=== PATIENT | female | born 1980 | race Caucasian/White ===

== ENCOUNTER 2016-05-08 16:12 | Emergency (ER) | payer MEDICARE ==
[2016-05-08 17:39] LABS: Hemoglobin 10.5 g/dL (12.0-16.0); Mean Corpuscular Hemoglobin 23.5 pg (27.0-31.0); Mean Corpuscular Volume 75.8 fL (81.0-99.0); RBC Distribution Width 17.9 % (11.5-14.5); Red Blood Cell (RBC) Count 4.45 mill/uL (4.20-5.40); White Blood Cell (WBC) Count 8.3 thou/uL (4.8-10.8)
[2016-05-08 17:40] LABS: #Eosinphils 0.5 thou/uL (0.0-0.7); #Lymphocytes 2.1 thou/uL (1.20-3.40); #Monocytes 0.4 thou/uL (0.11-0.59); #Neutrophils 5.4 thou/uL (1.40-6.50); %Basophils 0.6 % (0.0-1.0); %Eosinophils 5.5 % (0.0-10.0); %Lymphocytes 24.8 % (21.0-51.0); %Neutrophils 64.2 % (42.0-75.0); Anisocytosis SLIGHT = 6-15 cells (100X) (0-5/hpf); Mean Platelet Volume 8.4 fL (7.4-10.4); Platelet Count 252 thou/uL (130-400)
[2016-05-08 17:41] LABS: PLT Morphology Comment Appears Adequate
[2016-05-08 17:44] LABS: BHCG - Serum NEGATIVE (NEGATIVE); Pregs Control Background? CLEAR/WHITE (CLR/WHITE); Pregs Control Bar Appear? YES (CONTROL BAR)
[2016-05-08 17:55] LABS: ALT (SGPT) 60 U/L (0-55); AST (SGOT) 128 U/L (5-34); Albumin 4.3 g/dL (3.5-5.0); Alkaline Phosphatase 117 U/L (40-150); Anion Gap 16 mmol/L (10-20); BUN (Urea Nitrogen) 10 mg/dL (7.0-18.7); Bilirubin, Total 0.3 mg/dL (0.2-1.2); Calc. Creatinine Clearance 0 mL/min (70-130); Calcium 9.7 mg/dL (7.8-10.44); Carbon Dioxide 22 mmol/L (22-29); Chloride 104 mmol/L (98-107); Estimated GFR-MDRD 84; Globulin 2.9 g/dL (2.4-3.5); Glucose 102 mg/dL (70-105); Potassium 3.7 mmol/L (3.5-5.1); Protein, Total 7.2 g/dL (6.0-8.3); Sodium 138 mmol/L (136-145)
[2016-05-08 18:47] LABS: Bilirubin Negative (Negative); Blood, Urine Negative (Negative); Clarity Clear (Clear); Glucose, Urine (Dipstick) Negative (Negative); Leukocyte Negative (Negative); Nitrite Negative (Negative); Protein, Urine (Dipstick) Negative (Neg-Trace); Urobilinogen 0.2 mg/dL (0.2-1.0); pH, Urine 5.5 (5.0-9.0)
[2016-05-08] MEDS ORDERED: diphenhydrAMINE HCl 25 MG CAP ONE (19:05)
[2016-05-08] MEDS ORDERED: HYDROcodone/Acetaminophen 10/325 mg Tablet ONE (19:05)
[2016-05-08] MEDS ORDERED: Hyoscyamine Sulfate SL 0.125 mg Tablet ONE (19:05)
--- NOTE | 2016-05-08 19:40 | ERRECORD ---
[facility] EMERGENCY RECORD HPI ABDOMINAL PAIN (19:01 LLDO) CHIEF COMPLAINTS: Patient presents for evaluation of abdominal pain, Patient presents for evaluation of last week pt was given a depo-provera shot to stop periods to help her recover from her anemia in prep for her up-coming hysterectomy. the bleeding has stopped but the pelvic cramps are now much worse. pt unable to sleep or find any comfort. HISTORIAN: History provided by patient, History provided by patient's partner. LOCATION FEMALE: Symptoms are generalized. QUALITY: Pain is dull in nature, described as aching, described as cramping. SEVERITY: Maximum severity of symptoms severe, Currently symptoms are moderate. TIME COURSE: Patient unable to describe onset of symptoms, Symptoms are intermittent, Symptoms are worsening. ASSOCIATED WITH FEMALE: No associated recent antibiotic use, No associated bright red blood per rectum, No associated chills, No associated constipation, No associated diarrhea, Associated with fever, Associated with loss of appetite, Associated with nausea, No associated night sweats, No associated trauma, No associated urinary tract infection signs or symptoms, No associated vomiting, low back pain. MODIFYING FACTORS FEMALE: Patient does not have sexually transmitted disease, see hpi. RELIEVED BY: Patient's condition relieved by nothing. EXACERBATED BY: Patient's condition exacerbated by movement, Patient's condition exacerbated by walking, Patient's condition exacerbated by PALPATION. RISK FACTORS FEMALE: No ectopic risk factors present, Abdominal aortic aneurysm risk factors, not applicable for this patient, no connective tissue disorders, no Tamara Danlos syndrome, no first degree relative, no Marfan's syndrome, patient not over 40 years of age, no history of abdominal aortic aneurysm, Coronary artery disease risk factors, include diabetes. ROS CONSTITUTIONAL: Historian reports fatigue, reports weakness. (19:11 LLDO) EYES: Negative eye review of systems, Historian denies eye pain, denies eye redness, denies eye discharge. (19:15 LLDO) ENT: Negative ears, nose, throat review of systems, Historian denies epistaxis, denies rhinorrhea, denies sinus pain, denies sore throat. (19:15 LLDO) CARDIOVASCULAR: Negative cardiovascular review of systems, Historian denies chest pain, no radiation, Historian denies diaphoresis, denies syncope. (19:15 LLDO) RESPIRATORY: Negative respiratory review of systems, Historian denies cough, denies shortness of breath, denies sputum. (19:15 LLDO) GI: Negative gastrointestinal review of systems, Historian denies abdominal pain, denies constipation, denies diarrhea, denies nausea, &a-1R&a+25V*p+0X*q7744K*c202B*c15G*c2P*p-0X&a-25V&a+1R Name: Lourdes Lindsey : 1980 F36 MedRec: [id number] AcctNum: [id number] Prepared: Rox May 08, 2016 19:38 by Interface Page 1 of 5 pMD [facility] EMERGENCY RECORD denies vomiting. (19:15 LLDO) GENITOURINARY FEMALE: Negative genitourinary review of systems, Historian denies dysuria, denies frequency, denies urgency. (19:15 LLDO) MUSCULOSKELETAL: Negative musculoskeletal review of systems, Historian denies arthralgias, denies back pain, denies injury, denies myalgias, denies neck pain. (19:15 LLDO) SKIN: Negative skin review of systems, Historian denies cellulitis, denies rash, denies skin changes, denies skin lesions. (19:15 LLDO) NEUROLOGIC: Negative neurologic review of systems, Historian denies confusion, denies dizziness, denies focal weakness, denies mental status changes. (19:15 LLDO) HEMO/LYMPHATIC: Normal hematologic/lymphatic system review, Historian denies abnormal blood clotting, denies gum bleeding, denies petechiae. (19:15 LLDO) ALLERGIC/IMMUNOLOGIC: Normal allergy/immunologic system review, Historian denies eczema, denies environmental allergies, denies food allergies. (19:15 LLDO) PSYCHIATRIC: Negative psychiatric review of systems, Historian denies alcohol abuse, denies anxiety, denies depression, denies drug abuse, denies hallucinations. (19:15 LLDO) NOTES: All systems reviewed, negative except as described above. (19:11 LLDO) PAST MEDICAL HISTORY MEDICAL HISTORY: Flu vaccine not up to date, Pneumococcal vaccine up to date, Date of immunization: 2007, Past medical history includes history of diabetes, Type I, ON METFORMIN, Flu vaccine up to date, Tetanus immunization up to date, Past medical history includes gastrointestinal disease, irritable bowel syndrome, Past medical history includes neurological disease, migraine headaches, Notes: GERD, Past medical history includes history of obesity, Past medical history includes pulmonary disease, SEASONAL ALLERGIES. VERIFIED 02/29/16. PLUS FATTY LIVER DISEASE. (16:40 SCHI) FEMALE SURGICAL HISTORY: Surgical history of cholecystectomy, HAND (right), THROAT (nodule removed) AND FOOT (right)SURGERIES. Surgical history of section, Date of surgery 2004. CARPAL TUNNEL right. VERIFIED 02/29/16. (16:40 SCHI) PSYCHIATRIC HISTORY: Psychiatric history includes, depression, Psychiatric history includes, schizophrenia, Notes: BI-POLAR. Psychiatric history includes, depression,. VERIFIED 02/29/16. (16:40 SCHI) SOCIAL HISTORY: Patient denies alcohol use, Patient denies drug use, Lives at home, with family, Tobacco history notes: currently uses vape cigarettes, Lives at home. Patient denies alcohol use, Patient denies drug use,, Patient is a former tobacco user, Tobacco history notes: currently uses vape cigarettes, Lives at home. VERIFIED 02/29/16. (16:40 SCHI) &a-1R&a+25V*p+0X*[id number]*c202B*c15G*c2P*p-0X&a-25V&a+1R Name: Lourdes Lindsey : 1980 F36 MedRec: [id number] AcctNum: [id number] Prepared: [facility] May 08, 2016 19:38 by Interface Page 2 of 5 pMD [facility] EMERGENCY RECORD NOTES: Nursing records reviewed, Agree with nursing records, Medication list reviewed. (19:14 LLDO) KNOWN ALLERGIES aspirin (bulk): - UPSERTS STOMACH morphine: Reaction: Nausea, Severity: Severe, Source: Patient Peanut Butter Flavor: Reaction: Anaphylaxis, Source: Patient Soy: Reaction: Nausea CURRENT MEDICATIONS (16:41 SCHI) Geodon: CAPSULE : Strength - 80 mg : ORAL Patient Dose: 1 tab(s) Oral once a day (at bedtime). traZODone: TABLET : Strength - 100 mg : ORAL Patient Dose: 1 tab(s) Oral once a day (at bedtime). Topamax: TABLET : Strength - 200 mg : ORAL Patient Dose: 1 tab(s) Oral once a day (at bedtime). LORazepam: TABLET : Strength - 0.5 mg : ORAL Patient Dose: As Needed. Lexapro: TABLET : Strength - 20 mg : ORAL Patient Dose: once a day. Cogentin: TABLET : Strength - 2 mg : ORAL Patient Dose: 4 mg once a day (at bedtime). PriLOSEC: CAPSULE,DELAYED RELEASE (ENTERIC COATED) : Strength - 40 mg : ORAL Patient Dose: Oral once a day (at bedtime). metFORMIN: TABLET : Strength - 500 mg : ORAL Patient Dose: 1 tab(s) Oral 2 times a day (before meals). VITAL SIGNS VITAL SIGNS: BP: 146/77, Pulse: 81, Resp: 20, Temp: 100. (Tympanic), Pain: 7 (Intermittent), O2 sat: 98 on Room Air, Time: 05/08/2016 16:38. (16:38 SCHI) BP: 136/76, Pulse: 77, Resp: 18, O2 sat: 96 on Room Air, Time: 05/08/2016 18:45. (18:45 CJEF) BP: 141/68, Pulse: 80, Resp: 18, Temp: 99.5 (Oral), Pain: 7, O2 sat: 95 on Room Air, Time: 05/08/2016 19:12. (19:12 CJEF) PHYSICAL EXAM CONSTITUTIONAL: Vital Signs Reviewed, Patient afebrile, Pulse normal, Blood pressure normal, Respiratory rate normal, Patient appears non toxic, Patient appears, in moderate pain distress, SEVERE WITH PALPATION OR MOVEMENT, Patient alert and oriented to person, place and time, Nursing notes reviewed. &a-1R&a+25V*p+0X*y6700B*c202B*c15G*c2P*p-0X&a-25V&a+1R Name: Lourdes Lindsey : 1980 F36 MedRec: [id number] AcctNum: [id number] Prepared: Rox May 08, 2016 19:38 by Interface Page 3 of 5 pMD [facility] EMERGENCY RECORD (19:12 LLDO) HEAD: Head exam normal, Head exam included findings of head atraumatic, normocephalic. (19:15 LLDO) EYES: Eye exam normal, Eye exam included findings of eyelids normal to inspection, Pupils equally round and reactive to light, Extraocular muscles intact. (19:15 LLDO) ENT: ENT exam normal, Ear exam normal, Nose exam normal. (19:15 LLDO) NECK: Neck exam normal, Neck exam included findings of normal range of motion, Trachea midline, no meningeal signs, no tenderness. (19:15 LLDO) RESPIRATORY CHEST: Respiratory and chest exam normal, Respiratory exam included findings of, Chest exam included findings of chest movement symmetrical, Chest expansion equal. (19:15 LLDO) CARDIOVASCULAR: Cardiovascular assessment normal, Cardiovascular exam included findings of heart rate regular rate and rhythm, Heart sounds normal. (19:15 LLDO) ABDOMEN FEMALE: Abdominal exam included findings of abdomen tender, to the left lower quadrant, moderate intensity, Bowel sounds normal. (19:12 LLDO) BACK: Back exam included findings of normal inspection, range of motion normal, no tenderness, no costovertebral angle tenderness, no Scoliosis, no pain with straight leg raise. (19:12 LLDO) UPPER EXTREMITY: Upper extremity exam normal, Upper extremity exam included findings of inspection normal, Range of motion normal. (19:15 LLDO) LOWER EXTREMITY: Lower extremity exam normal, Lower extremity exam included findings of inspection normal, Range of motion normal. (19:15 LLDO) NEURO: Neuro exam normal, Neuro exam findings include patient oriented to person, place and time, Speech normal, Aladdin coma scale 15. (19:15 LLDO) SKIN: Skin exam normal, Skin exam included findings of skin warm, dry, and normal in color, no rash. (19:15 LLDO) PSYCHIATRIC: Psychiatric exam normal, Psychiatric exam included findings of patient oriented to person place and time, Normal affect. (19:15 LLDO) MEDICATION ADMINISTRATION SUMMARY Drug Name: [place], Dose Ordered: 10-325 mg, Route: Oral, Status: Given, Time: 19:12 05/08/2016, Drug Name: Benadryl oral, Dose Ordered: 50 mg, Route: Oral, Status: Given, Time: 19:05/08/2016, Drug Name: Levsin/SL, Dose Ordered: 0.5 mg, Route: Sublingual, Status: Given, Time: 19:05/08/2016, Drug Name: Phenergan oral, Dose Ordered: 50 mg, Route: Oral, Status: Given, Time: 19:11 05/08/2016, Detailed record available in Medication Service section. &a-1R&a+25V*p+0X*[id number]*c202B*c15G*c2P*p-0X&a-25V&a+1R Name: Lourdes Lindsey : 1980 6 MedRec: [id number] AcctNum: [id number] Prepared: [facility] May 08, 2016 19:38 by Interface Page 4 of 5 pMD [facility] EMERGENCY RECORD PROBLEM LIST No recorded problems DIAGNOSIS (19:18 LLDO) FINAL: PRIMARY: Pelvic Pain, ADDITIONAL: ANEMIA UNSPECIFIED. PRESCRIPTION (19:20 LLDO) Provera: TABLET : 10 mg : ORAL : Quantity: 1 Unit: tab(s) Route: ORAL Schedule: once a day Dispense: 10 May substitute. Refills: No Refills . NOTES: No Refills. [place]: TABLET : 10 mg-325 mg : ORAL : Quantity: 1 Unit: tab(s) Route: ORAL Schedule: every 4 hours prn Dispense: 30 Unit: tab(s) May substitute. Refills: No Refills POTENTIAL ALLERGY REACTION: 'morphine [morphine/morphine sulfate]' Override Rationale: Reviewed with patient, pt says can safely take this medicine. NOTES: ^s=No Refills No Refills. DISPOSITION PATIENT: Disposition Type: Discharge, Disposition: *Discharge Home. (19:18 LLDO) Patient left the department. (19:31 [facility]) Cheng: SHAKEELEF=REGAN Lira, Aleena SCHWARTZDO=MD Lissy, Wing MCRS=REGAN Montano, Juan CASTILLO=REGAN Cunningham, Abnerinda &a-1R&a+25V*p+0X*[id number]*c202B*c15G*c2P*p-0X&a-25V&a+1R Name: Lourdes Lindsey : 1980 6 MedRec: [id number] AcctNum: [id number] Prepared: Rox May 08, 2016 19:38 by Interface Page 5 of 5 pMD MTDD
--- NOTE | 2016-05-08 19:46 | PICIS ---
[facility] EMERGENCY RECORD TRIAGE (16:40 SCHI) PATIENT: NAME: Lourdes Lindsey, AGE: 36, GENDER: female, : Thu1980, TIME OF GREET: ThuMay 08, 2016 16:13, PREFERRED LANGUAGE: Kiswahili, RACE: WHITE, ETHNICITY: Not or , FALL RISK: NO, ECODE BILLING MAP: [facility] ER, SSN: [id number], Zip Code: [facility], [place] WEIGHT: [phone], PHONE: CELL, , , PERSON ID: [id number], PCP: MD Velasquez David. (16:40 SCHI) TRIAGE NOTES: FEELS WEAK, CRAMPING, HAS BEEN HAVING ISSUES WITH HER PERIODS,. (16:40 SCHI) COMPLAINT: MULTIPLE COMPLAINTS. (16:40 SCHI) ADMISSION: URGENCY: 4 Non Urgent, ADMISSION SOURCE: Home, TRANSPORT: Walk-in, BED: WAIT. (16:40 SCHI) ASSESSMENT: Assessment: ALERT AND ORIENTED X 4, SKIN WARM AND DRY RESP EVEN AND UNLABORED,, Symptoms began ONGOING. (16:40 SCHI) PAIN: Patient complains of pain described as, cramping, on a scale 0-10 patient rates pain as 7, Pain is intermittent. (16:40 SCHI) TRIAGE SCREENING: Patient denies suicidal ideation, Patient denies presence of domestic violence. (16:40 SCHI) PROVIDERS: TRIAGE NURSE: Nik Cunningham RN. (16:40 SCHI) VITAL SIGNS: BP 146/77, Pulse 81, Resp 20, Temp 100., (Tympanic), Pain 7, (Intermittent), O2 Sat 98, on Room Air, Time 05/08/2016 16:38. (16:38 SCHI) PREVIOUS VISIT ALLERGIES: aspirin (bulk), morphine, Peanut Butter Flavor, Soy. (16:40 SCHI) KNOWN ALLERGIES aspirin (bulk): - UPSERTS STOMACH morphine: Reaction: Nausea, Severity: Severe, Source: Patient Peanut Butter Flavor: Reaction: Anaphylaxis, Source: Patient Soy: Reaction: Nausea CURRENT MEDICATIONS (16:41 SCHI) Geodon: CAPSULE : Strength - 80 mg : ORAL Patient Dose: 1 tab(s) Oral once a day (at bedtime). traZODone: TABLET : Strength - 100 mg : ORAL Patient Dose: 1 tab(s) Oral once a day (at bedtime). Topamax: TABLET : Strength - 200 mg : ORAL Patient Dose: 1 tab(s) Oral once a day (at bedtime). LORazepam: TABLET : Strength - 0.5 mg : ORAL Patient Dose: As Needed. Lexapro: TABLET : Strength - 20 mg : ORAL Patient Dose: once a day. &a-1R&a+25V*p+0X*y2998L*c202B*c15G*c2P*p-0X&a-25V&a+1R Name: Lourdes Lindsey : 1980 F36 MedRec: [id number] AcctNum: [id number] Prepared: [facility] May 08, 2016 19:44 by Interface Page 1 of 11 pMD [facility] RECORD Cogentin: TABLET : Strength - 2 mg : ORAL Patient Dose: 4 mg once a day (at bedtime). PriLOSEC: CAPSULE,DELAYED RELEASE (ENTERIC COATED) : Strength - 40 mg : ORAL Patient Dose: Oral once a day (at bedtime). metFORMIN: TABLET : Strength - 500 mg : ORAL Patient Dose: 1 tab(s) Oral 2 times a day (before meals). VITAL SIGNS VITAL SIGNS: BP: 146/77, Pulse: 81, Resp: 20, Temp: 100. (Tympanic), Pain: 7 (Intermittent), O2 sat: 98 on Room Air, Time: 05/08/2016 16:38. (16:38 SCHI) BP: 136/76, Pulse: 77, Resp: 18, O2 sat: 96 on Room Air, Time: 05/08/2016 18:45. (18:45 CJEF) BP: 141/68, Pulse: 80, Resp: 18, Temp: 99.5 (Oral), Pain: 7, O2 sat: 95 on Room Air, Time: 05/08/2016 19:12. (19:12 CJEF) NURSING ASSESSMENT: ABDOMEN (16:52 SCHI) CONSTITUTIONAL: Patient complains of WEAKNESS AND HURTS, PT HAS MULTIPLE C/O FEMALE ISSUES WHICH SHE IS CURRENLY SEEING HER DOCTOR FOR BUT DOESN'T HAVE MONEY FOR FULL TREATMENT. PAIN: aching pain, ALL OVER, on a scale 0-10 patient rates pain as 7. NOTES: Patient tolerated procedure well. NURSING PROCEDURE: ACID PURIFICATION EQUIPMENT OPERATOR (18:45 CJ) PATIENT IDENTIFIER: Patient actively involved in identification process, Patient's identity verified by patient stating name, Patient's identity verified by patient stating date. ACID PURIFICATION EQUIPMENT OPERATOR: Patient placed on non-invasive blood pressure monitor, with disposable blood pressure cuff applied, Patient placed on continuous pulse oximetry. FOLLOW-UP: After procedure, alarms set and on, After procedure, patient tolerating monitoring. NOTES: Patient tolerated procedure well. SAFETY: Side rails up, Cart/Stretcher in lowest position, Family at bedside, Call light within reach, Hospital ID band on. NURSING PROCEDURE: DISCHARGE NOTE (19:27 [facility]) DISCHARGE: Patient discharged to home, ambulating without assistance, family driving, accompanied by //partner, Summary of Care printed/ provided, Patient requested and was provided an electronic copy of Discharge Instructions, Transition record given to patient, Discharge instructions given to patient, Simple or moderate discharge teaching performed, Prescriptions given and instructions on side effects given, Medication reconciliation form given, Above person(s) verbalized understanding of discharge instructions and follow-up care, Patient treated and evaluated by &a-1R&a+25V*p+0X*q3247Y*c202B*c15G*c2P*p-0X&a-25V&a+1R Name: Lourdes Lindsey : 1980 F36 MedRec: [id number] AcctNum: [id number] Prepared: Rox May 08, 2016 19:44 by Interface Page 2 of 11 D [facility] EM[facility] RECORD physician. BELONGINGS: Belongings remain with patient. NOTES: Patient tolerated procedure well. SAFETY: Side rails up, Cart/Stretcher in lowest position, Family at bedside, Call light within reach, Hospital ID band on. NURSING PROCEDURE: NURSE NOTES (18:47 [facility]) NURSES NOTES: Patient in no apparent distress, Patient resting quietly, Notes: PT RESTING IN BED QUIETLY WITH FAMILY AT BEDSIDE. NO DISTRESS NOTED. NURSING PROCEDURE: URINE COLLECTION (18:38 [facility]) PATIENT IDENTIFIER: Patient actively involved in identification process, Patient's identity verified by patient stating name, Patient's identity verified by patient stating date, Patient's identity verified by hospital ID chan. URINE COLLECTION FEMALE: Urine collected by mid-stream clean catch, urine yellow in color, Specimen labeled in the presence of the patient and sent to lab. SAFETY: Side rails up, Cart/Stretcher in lowest position, Family at bedside, Hospital ID band on. ORDER DETAILS Order Name: CBC with Differential, Status: Active, Time: 17:05/08/2016, User: MICHAEL, - Ordered for: MD Yuan Lloyd, - Entered by: MD Yuan Lloyd - Rox May 08, 2016 17:07, - Quantity: 1, Order Name: Comprehensive Metabolic Panel, Status: Active, Time: 17:05/08/2016, User: LLDO, - Ordered for: MD Yuan Lloyd, - Entered by: MD Yuan Lloyd - Rox May 08, 2016 17:07, - Quantity: 1, Order Name: CRP (Inflamatory), Status: Active, Time: 17:07 05/08/2016, User: LLDO, - Ordered for: MD Yuan Lloyd, - Entered by: MD Yuan Lloyd - Rox May 08, 2016 17:07, - Quantity: 1, Order Name: Culture, Urine, Status: Active, Time: 17:05/08/2016, User: LL, - Ordered for: MD Yuan Lloyd, - Entered by: MD Yuan Lloyd - Rox May 08, 2016 17:07, - Quantity: 1, Order Name: Test, Serum (BHCG), Status: Active, Time: 17:05/08/2016, User: LLDO, - Ordered for: MD Yuan Lloyd, - Entered by: MD Yuan Lloyd - Rox May 08, 2016 17:07, - Quantity: 1, Order Name: Urinalysis w/ Rflx Microscopic, Status: Active, Time: &a-1R&a+25V*p+0X*y2208V*c202B*c15G*c2P*p-0X&a-25V&a+1R Name: Lourdes Lindsey DOB: 1980 F36 MedRec: [id number] AcctNum: [id number] Prepared: [facility] May 08, 2016 19:44 by Interface Page 3 of 11 pMD [facility] RECORD 17:07 05/08/2016, User: LANA, - Ordered for: MD Yuan Lloyd, - Entered by: MD Yuan Lloyd - [facility] May 08, 2016 17:07, - Quantity: 1. MEDICATION ADMINISTRATION SUMMARY Drug Name: Whitharral, Dose Ordered: 10-325 mg, Route: Oral, Status: Given, Time: 19:12 05/08/2016, Drug Name: Benadryl oral, Dose Ordered: 50 mg, Route: Oral, Status: Given, Time: 19:11 05/08/2016, Drug Name: Levsin/SL, Dose Ordered: 0.5 mg, Route: Sublingual, Status: Given, Time: 19:11 05/08/2016, Drug Name: Phenergan oral, Dose Ordered: 50 mg, Route: Oral, Status: Given, Time: 19:11 05/08/2016, Detailed record available in Medication Service section. MEDICATION SERVICE Benadryl oral: Order: Benadryl oral (diphenhydramine HCl) - Dose: 50 mg : Oral Schedule: Now Ordered by: Wing Yuan MD Entered by: Wing Yuan MD [facility] May 08, 2016 18:58 Documented as given by: Aleena Lira RN [facility] May 08, 2016 19:11 Patient, Medication, Dose, Route and Time verified prior to administration. Amount given: 50MG, Site: Medication administered P.O., Mouth check performed after administration of medication, Patient appears Awake and alert- acceptable, Correct patient, time, route, dose and medication confirmed prior to administration, Patient advised of actions and side-effects prior to administration, Allergies confirmed and medications reviewed prior to administration, Patient tolerated procedure well, Patient in position of comfort, Side rails up, Cart in lowest position, Family at bedside. : Follow Up : Response assessment performed, No signs or symptoms of allergic reaction noted, Advised not to ambulate without assistance, Patient in position of comfort, Side rails up, Cart in lowest position, Family at bedside. (19:21 [facility]) Levsin/SL: Order: Levsin/SL (hyoscyamine sulfate) - Dose: 0.5 mg : Sublingual Schedule: Now Ordered by: Wing Yuan MD Entered by: Wing Yuan MD [facility] May 08, 2016 18:59 Documented as given by: Aleena Lira RN [facility] May 08, 2016 19:11 Patient, Medication, Dose, Route and Time verified prior to administration. Amount given: 0.5 MG, Site: Medication administered S.L., Mouth check performed after administration of medication, Patient appears Awake and alert- acceptable, Correct patient, time, route, dose and medication confirmed prior to administration, Patient advised of &a-1R&a+25V*p+0X*p4286P*c202B*c15G*c2P*p-0X&a-25V&a+1R Name: Lourdes Lindsey : 1980 F36 MedRec: [id number] AcctNum: [id number] Prepared: Rox May 08, 2016 19:44 by Interface Page 4 of 11 D [facility] EM[facility] RECORD actions and side-effects prior to administration, Allergies confirmed and medications reviewed prior to administration, Patient tolerated procedure well, Patient in position of comfort, Side rails up, Cart in lowest position, Family at bedside. : Follow Up : Response assessment performed, No signs or symptoms of allergic reaction noted, Advised not to ambulate without assistance, Patient in position of comfort, Side rails up, Cart in lowest position, Family at bedside. (19:21 [facility]) Whitharral: Order: Whitharral (hydrocodone bitartrate/acetaminophen) - Dose: 10-325 mg : Oral POTENTIAL ALLERGY REACTION: 'morphine [morphine/morphine sulfate]' - Reviewed with patient, pt says can safely take this medicine Schedule: Now Ordered by: Wing Yuan MD Entered by: Wing Yuan MD [facility] May 08, 2016 18:57 Documented as given by: Aleena Lira RN [facility] May 08, 2016 19:12 Patient, Medication, Dose, Route and Time verified prior to administration. Amount given: 1 TAB, Site: Medication administered P.O., Mouth check performed after administration of medication, Patient appears Awake and alert- acceptable, Correct patient, time, route, dose and medication confirmed prior to administration, Patient advised of actions and side-effects prior to administration, Allergies confirmed and medications reviewed prior to administration, Patient tolerated procedure well, Patient in position of comfort, Side rails up, Cart in lowest position, Family at bedside. : Follow Up : Response assessment performed, No signs or symptoms of allergic reaction noted, Advised not to ambulate without assistance, Patient in position of comfort, Side rails up, Cart in lowest position, Family at bedside. (19:21 [facility]) Phenergan oral: Order: Phenergan oral (promethazine HCl) - Dose: 50 mg : Oral Schedule: Now Ordered by: Wing Yuan MD Entered by: Wing Yuan MD [facility] May 08, 2016 18:59 Documented as given by: Aleena Lira RN [facility] May 08, 2016 19:11 Patient, Medication, Dose, Route and Time verified prior to administration. Amount given: 50MG, Site: Medication administered P.O., Mouth check performed after administration of medication, Patient appears Awake and alert- acceptable, Correct patient, time, route, dose and medication confirmed prior to administration, Patient advised of actions and side-effects prior to administration, Allergies confirmed and medications reviewed prior to administration, Patient tolerated procedure well, Patient in position of comfort, Side rails up, Cart in lowest position, Family at bedside. : Follow Up : Response assessment performed, No signs or symptoms of allergic reaction noted, Advised not to ambulate without assistance, Patient in position of comfort, Side rails up, Cart in lowest position, Family at bedside. (19:21 [facility]) &a-1R&a+25V*p+0X*y0649F*c202B*c15G*c2P*p-0X&a-25V&a+1R Name: Lourdes Lindsey : 1980 F36 MedRec: [id number] AcctNum: [id number] Prepared: [facility] May 08, 2016 19:44 by Interface Page 5 of 11 D [facility] EM[facility] RECORD HPI ABDOMINAL PAIN (19:01 LLDO) CHIEF COMPLAINTS: Patient presents for evaluation of abdominal pain, Patient presents for evaluation of last week pt was given a depo-provera shot to stop periods to help her recover from her anemia in prep for her up-coming hysterectomy. the bleeding has stopped but the pelvic cramps are now much worse. pt unable to sleep or find any comfort. HISTORIAN: History provided by patient, History provided by patient's partner. LOCATION FEMALE: Symptoms are generalized. QUALITY: Pain is dull in nature, described as aching, described as cramping. SEVERITY: Maximum severity of symptoms severe, Currently symptoms are moderate. TIME COURSE: Patient unable to describe onset of symptoms, Symptoms are intermittent, Symptoms are worsening. ASSOCIATED WITH FEMALE: No associated recent antibiotic use, No associated bright red blood per rectum, No associated chills, No associated constipation, No associated diarrhea, Associated with fever, Associated with loss of appetite, Associated with nausea, No associated night sweats, No associated trauma, No associated urinary tract infection signs or symptoms, No associated vomiting, low back pain. MODIFYING FACTORS FEMALE: Patient does not have sexually transmitted disease, see hpi. RELIEVED BY: Patient's condition relieved by nothing. EXACERBATED BY: Patient's condition exacerbated by movement, Patient's condition exacerbated by walking, Patient's condition exacerbated by PALPATION. RISK FACTORS FEMALE: No ectopic risk factors present, Abdominal aortic aneurysm risk factors, not applicable for this patient, no connective tissue disorders, no Tamara Danlos syndrome, no first degree relative, no Marfan's syndrome, patient not over 40 years of age, no history of abdominal aortic aneurysm, Coronary artery disease risk factors, include diabetes. ROS CONSTITUTIONAL: Historian reports fatigue, reports weakness. (19:11 LLDO) EYES: Negative eye review of systems, Historian denies eye pain, denies eye redness, denies eye discharge. (19:15 LLDO) ENT: Negative ears, nose, throat review of systems, Historian denies epistaxis, denies rhinorrhea, denies sinus pain, denies sore throat. (19:15 LLDO) CARDIOVASCULAR: Negative cardiovascular review of systems, Historian denies chest pain, no radiation, Historian denies diaphoresis, denies syncope. (19:15 LLDO) RESPIRATORY: Negative respiratory review of systems, Historian denies cough, denies shortness of breath, denies sputum. (19:15 LLDO) GI: Negative gastrointestinal review of systems, Historian denies &a-1R&a+25V*p+0X*u9739S*c202B*c15G*c2P*p-0X&a-25V&a+1R Name: Lourdes Lindsey : 1980 F36 MedRec: [id number] AcctNum: [id number] Prepared: Rox May 08, 2016 19:44 by Interface Page 6 of 11 pMD [facility] RECORD abdominal pain, denies constipation, denies diarrhea, denies nausea, denies vomiting. (19:15 LLDO) GENITOURINARY FEMALE: Negative genitourinary review of systems, Historian denies dysuria, denies frequency, denies urgency. (19:15 LLDO) MUSCULOSKELETAL: Negative musculoskeletal review of systems, Historian denies arthralgias, denies back pain, denies injury, denies myalgias, denies neck pain. (19:15 LLDO) SKIN: Negative skin review of systems, Historian denies cellulitis, denies rash, denies skin changes, denies skin lesions. (19:15 LLDO) NEUROLOGIC: Negative neurologic review of systems, Historian denies confusion, denies dizziness, denies focal weakness, denies mental status changes. (19:15 LLDO) HEMO/LYMPHATIC: Normal hematologic/lymphatic system review, Historian denies abnormal blood clotting, denies gum bleeding, denies petechiae. (19:15 LLDO) ALLERGIC/IMMUNOLOGIC: Normal allergy/immunologic system review, Historian denies eczema, denies environmental allergies, denies food allergies. (19:15 LLDO) PSYCHIATRIC: Negative psychiatric review of systems, Historian denies alcohol abuse, denies anxiety, denies depression, denies drug abuse, denies hallucinations. (19:15 LLDO) NOTES: All systems reviewed, negative except as described above. (19:11 LLDO) PAST MEDICAL HISTORY MEDICAL HISTORY: Flu vaccine not up to date, Pneumococcal vaccine up to date, Date of immunization: 2007, Past medical history includes history of diabetes, Type I, ON METFORMIN, Flu vaccine up to date, Tetanus immunization up to date, Past medical history includes gastrointestinal disease, irritable bowel syndrome, Past medical history includes neurological disease, migraine headaches, Notes: GERD, Past medical history includes history of obesity, Past medical history includes pulmonary disease, SEASONAL ALLERGIES. VERIFIED 02/29/16. PLUS FATTY LIVER DISEASE. (16:40 SCHI) FEMALE SURGICAL HISTORY: Surgical history of cholecystectomy, HAND (right), THROAT (nodule removed) AND FOOT (right)SURGERIES. Surgical history of section, Date of surgery 2004. CARPAL TUNNEL right. VERIFIED 02/29/16. (16:40 SCHI) PSYCHIATRIC HISTORY: Psychiatric history includes, depression, Psychiatric history includes, schizophrenia, Notes: BI-POLAR. Psychiatric history includes, depression,. VERIFIED 02/29/16. (16:40 SCHI) SOCIAL HISTORY: Patient denies alcohol use, Patient denies drug use, Lives at home, with family, Tobacco history notes: currently uses vape cigarettes, Lives at home. Patient denies alcohol use, Patient denies drug use,, Patient is a former tobacco user, Tobacco history notes: currently uses vape cigarettes, Lives at home. &a-1R&a+25V*p+0X*s1231D*c202B*c15G*c2P*p-0X&a-25V&a+1R Name: Lourdes Lindsey : 1980 F36 MedRec: [id number] AcctNum: [id number] Prepared: Rox May 08, 2016 19:44 by Interface Page 7 of 11 pMD [facility] RECORD VERIFIED 02/29/16. (16:40 SCHI) NOTES: Nursing records reviewed, Agree with nursing records, Medication list reviewed. (19:14 LLDO) PHYSICAL EXAM CONSTITUTIONAL: Vital Signs Reviewed, Patient afebrile, Pulse normal, Blood pressure normal, Respiratory rate normal, Patient appears non toxic, Patient appears, in moderate pain distress, SEVERE WITH PALPATION OR MOVEMENT, Patient alert and oriented to person, place and time, Nursing notes reviewed. (19:12 LLDO) HEAD: Head exam normal, Head exam included findings of head atraumatic, normocephalic. (19:15 LLDO) EYES: Eye exam normal, Eye exam included findings of eyelids normal to inspection, Pupils equally round and reactive to light, Extraocular muscles intact. (19:15 LLDO) ENT: ENT exam normal, Ear exam normal, Nose exam normal. (19:15 LLDO) NECK: Neck exam normal, Neck exam included findings of normal range of motion, Trachea midline, no meningeal signs, no tenderness. (19:15 LLDO) RESPIRATORY CHEST: Respiratory and chest exam normal, Respiratory exam included findings of, Chest exam included findings of chest movement symmetrical, Chest expansion equal. (19:15 LLDO) CARDIOVASCULAR: Cardiovascular assessment normal, Cardiovascular exam included findings of heart rate regular rate and rhythm, Heart sounds normal. (19:15 LLDO) ABDOMEN FEMALE: Abdominal exam included findings of abdomen tender, to the left lower quadrant, moderate intensity, Bowel sounds normal. (19:12 LLDO) BACK: Back exam included findings of normal inspection, range of motion normal, no tenderness, no costovertebral angle tenderness, no Scoliosis, no pain with straight leg raise. (19:12 LLDO) UPPER EXTREMITY: Upper extremity exam normal, Upper extremity exam included findings of inspection normal, Range of motion normal. (19:15 LLDO) LOWER EXTREMITY: Lower extremity exam normal, Lower extremity exam included findings of inspection normal, Range of motion normal. (19:15 LLDO) NEURO: Neuro exam normal, Neuro exam findings include patient oriented to person, place and time, Speech normal, Melly coma scale 15. (19:15 LLDO) SKIN: Skin exam normal, Skin exam included findings of skin warm, dry, and normal in color, no rash. (19:15 LLDO) PSYCHIATRIC: Psychiatric exam normal, Psychiatric exam included findings of patient oriented to person place and time, Normal affect. (19:15 LLDO) EVENTS &a-1R&a+25V*p+0X*t1037F*c202B*c15G*c2P*p-0X&a-25V&a+1R Name: Lourdes Lindsey : 1980 F36 MedRec: [id number] AcctNum: [id number] Prepared: ThuMay 08, 2016 19:44 by Interface Page 8 of 11 pMD [facility] RECORD TRANSFER: Triage to Emergency Waiting. (ThuMay 08, 2016 16:40 SCHI) Emergency Waiting to Main ED -05. (18:37 SCHI) Removed from Emergency Main ED -05. (19:31 MCRS) PROBLEM LIST No recorded problems DIAGNOSIS (19:18 LLDO) FINAL: PRIMARY: Pelvic Pain, ADDITIONAL: ANEMIA UNSPECIFIED. DISPOSITION PATIENT: Disposition Type: Discharge, Disposition: *Discharge Home. (19:18 LLDO) Patient left the department. (19:31 MCRS) INSTRUCTION (19:22 LLDO) DISCHARGE: PELVIC PAIN, UNKNOWN CAUSE. FOLLOWUP: MD Ron, [facility], [address] [place] [address], [place] [address], [place], , Follow up with Primary Care Physician as soon as possible. SPECIAL: Follow-up with your TAG [employer] OPERATOR doctor. PRESCRIPTION (19:20 LLDO) Provera: TABLET : 10 mg : ORAL : Quantity: 1 Unit: tab(s) Route: ORAL Schedule: once a day Dispense: 10 May substitute. Refills: No Refills . NOTES: No Refills. Whitharral: TABLET : 10 mg-325 mg : ORAL : Quantity: 1 Unit: tab(s) Route: ORAL Schedule: every 4 hours prn Dispense: 30 Unit: tab(s) May substitute. Refills: No Refills POTENTIAL ALLERGY REACTION: 'morphine [morphine/morphine sulfate]' Override Rationale: Reviewed with patient, pt says can safely take this medicine. NOTES: ^s=No Refills No Refills. IMAGING NORCO PRESCRIPTION: Image captured from scanner. (19:28 MCRS) *DISCHARGE INSTRUCTIONS RECEIPT: Image captured from scanner. (19:32 MCRS) Page 2 added. Image captured from scanner. (19:32 MCRS) *SUPPLY CHARGE SHEET: Image captured from scanner. (19:32 MCRS) ADMIN (19:28 [facility]) DIGITAL SIGNATURE: MD Lissy Wing. RESULTS (19:16 [facility]) &a-1R&a+25V*p+0X*b5714H*c202B*c15G*c2P*p-0X&a-25V&a+1R Name: Lourdes Lindsey : 1980 F36 MedRec: [id number] AcctNum: [id number] Prepared: ThuMay 08, 2016 19:44 by Interface Page 9 of 11 pMD [facility] LABORATORY: Urinalysis w/ Rflx Microscopic Collection DT: ThuMay 08, 2016 18:46, Color Yellow , Range (Yellow), Clarity Clear , Range (Clear), Specific [place], Urine 1.020 , Range (1.005-1.030), pH, Urine 5.5 , Range (5.0-9.0), Leukocyte Negative , Range (Negative), Nitrite Negative , Range (Negative), Protein, Urine (Dipstick) Negative mg/dL, Range (Neg-Trace), Glucose, Urine (Dipstick) Negative mg/dL, Range (Negative), Ketone, Urine Negative mg/dL, Range (Negative), Urobilinogen 0.2 mg/dL, Range (0.2-1.0), Bilirubin Negative , Range (Negative), Blood, Urine Negative , Range (Negative). CRP (Inflammatory) Collection DT: ThuMay 08, 2016 17:29, *CRP (Inflammatory) 2.86 - H mg/dL, Range (= or < 0.5). Comprehensive Metabolic Panel Collection DT: ThuMay 08, 2016 17:29, Sodium 138 mmol/L, Range (136-145), Potassium 3.7 mmol/L, Range (3.5-5.1), Chloride 104 mmol/L, Range (98-107), Carbon Dioxide 22 mmol/L, Range (22-29), Anion Gap 16 mmol/L, Range (10-20), BUN (Urea Nitrogen) 10 mg/dL, Range (7.0-18.7), Creatinine 0.77 mg/dL, Range (0.6-1.1), Estimated GFR-MDRD 84 , Reference Range for Estimated GFR: Greater than 90, mL/min/1.73 m2 NOTE: The MDRD equation has not been validated for use, with the elderly (over 70 years of age), women, patients with, serious comorbid condition or persons with extremes of body size, muscle, mass, or nutritional status. , Glucose 102 mg/dL, Range (70-105), Calcium 9.7 mg/dL, Range (7.8-10.44), Bilirubin, Total 0.3 mg/dL, Range (0.2-1.2), Protein, Total 7.2 g/dL, Range (6.0-8.3), NOTE: Plasma values are generally 0.3 to 0.5 g/dL higher than serum values, due to the presence of fibrinogen. , Albumin 4.3 g/dL, Range (3.5-5.0), Globulin 2.9 g/dL, Range (2.4-3.5), Alb/Glob Ratio 1.5 g/dL, Range (1.2-2.2), Alkaline Phosphatase 117 U/L, Range (40-150), *AST (SGOT) 128 - H U/L, Range (5-34), *ALT (SGPT) 60 - H U/L, Range (0-55). Test, Serum (BHCG) Collection DT: ThuMay 08, 2016 17:29, BHCG - Serum NEGATIVE , Range (NEGATIVE), Method of sensitivity- Indeterminant: results should be repeated, after 48 hours. Positive: results may be detected as early as 4-5 days before a first missed menses. &a-1R&a+25V*p+0X*b2948H*c202B*c15G*c2P*p-0X&a-25V&a+1R Name: Lourdes Lindsey : 1980 F36 MedRec: [id number] AcctNum: [id number] Prepared: ThuMay 08, 2016 19:44 by Interface Page 10 of 11 pMD [facility] EMERGENCY RECORD Elimination of BHCG-, Elimination following first trimester D&C: 29-44 Days , Elimination following term : 8-24 Days . CBC with Differential Collection DT: ThuMay 08, 2016 17:29, White Blood Cell (WBC) Count 8.3 thou/uL, Range (4.8-10.8), Red Blood Cell (RBC) Count 4.45 mill/uL, Range (4.20-5.40), *Hemoglobin 10.5 - L g/dL, Range (12.0-16.0), *Hematocrit 33.8 - L %, Range (36.0-47.0), *Mean Corpuscular Volume 75.8 - L fL, Range (81.0-99.0), *Mean Corpuscular Hemoglobin 23.5 - L pg, Range (27.0-31.0), *Mean Corpuscular HGB CONC 31.0 - L g/dL, Range (32.0-36.0), *RBC Distribution Width 17.9 - H %, Range (11.5-14.5), Platelet Count 252 thou/uL, Range (130-400), Mean Platelet Volume 8.4 fL, Range (7.4-10.4), %Neutrophils 64.2 %, Range (42.0-75.0), %Lymphocytes 24.8 %, Range (21.0-51.0), %Monocytes 5.0 %, Range (0.0-10.0), %Eosinophils 5.5 %, Range (0.0-10.0), %Basophils 0.6 %, Range (0.0-1.0), #Neutrophils 5.4 thou/uL, Range (1.40-6.50), #Lymphocytes 2.1 thou/uL, Range (1.20-3.40), #Monocytes 0.4 thou/uL, Range (0.11-0.59), #Eosinphils 0.5 thou/uL, Range (0.0-0.7), #Basophils 0.0 thou/uL, Range (0.0-0.2), Anisocytosis SLIGHT = 6-15 cells (100X), Range (0-5/hpf), PLT Morphology Comment Appears Adequate . Cheng: SAVI=REGAN Lira, Aleena RODRIGUEZ=MD Lissy, Wing CHENGS=REGAN Montano, Juan CASTILLO=REGAN Cunningham, Slinda &a-1R&a+25V*p+0X*w3893V*c202B*c15G*c2P*p-0X&a-25V&a+1R Name: Lourdes Lindsey : 1980 F36 MedRec: [id number] AcctNum: [id number] Prepared: ThuMay 08, 2016 19:44 by Interface Page 11 of 11 pMD [facility] MEDICATION RECONCILIATION You were seen in the Emergency Department on: ThuMay 08, 2016 KNOWN ALLERGIES aspirin (bulk): - UPSERTS STOMACH morphine: Reaction: Nausea, Severity: Severe, Source: Patient Peanut Butter Flavor: Reaction: Anaphylaxis, Source: Patient Soy: Reaction: Nausea MEDICATIONS GIVEN WHILE IN THE EMERGENCY DEPARTMENT [place] (hydrocodone bitartrate/acetaminophen) - Dose: 10-325 milligram(s) : Oral Benadryl oral (diphenhydramine HCl) - Dose: 50 milligram(s) : Oral Levsin/SL (hyoscyamine sulfate) - Dose: 0.5 milligram(s) : Sublingual Phenergan oral (promethazine HCl) - Dose: 50 milligram(s) : Oral HOME MEDICATIONS CONTINUE PRESCRIBED Cogentin : TABLET : Strength - 2 mg : ORAL Continue as prescribed Patient had been takin mg once a day (at bedtime). Geodon : CAPSULE : Strength - 80 mg : ORAL Continue as prescribed Patient had been takin tab(s) Oral once a day (at bedtime). Lexapro : TABLET : Strength - 20 mg : ORAL Continue as prescribed Patient had been taking: once a day. LORazepam : TABLET : Strength - 0.5 mg : ORAL Continue as prescribed Patient had been taking: As Needed. metFORMIN : TABLET : Strength - 500 mg : ORAL Continue as prescribed Patient had been takin tab(s) Oral 2 times a day (before meals). PriLOSEC : CAPSULE,DELAYED RELEASE (ENTERIC COATED) : Strength - 40 mg : ORAL Continue as prescribed Patient had been taking: Oral once a day (at bedtime). &a-1R&a+25V*p+0X*[id number]*c202B*c15G*c2P*p-0X&a-25V&a+1R Name: Lourdes Lindsey Tato : 1980 F36 MedRec: [id number] AcctNum: [id number] Prepared: Rox May 08, 2016 19:44 by Interface pMD [facility] MEDICATION RECONCILIATION Topamax : TABLET : Strength - 200 mg : ORAL Continue as prescribed Patient had been takin tab(s) Oral once a day (at bedtime). traZODone : TABLET : Strength - 100 mg : ORAL Continue as prescribed Patient had been takin tab(s) Oral once a day (at bedtime). Notes from the emergency department Reviewed with family Reviewed with patient PRESCRIPTIONS (2) Printed (2) Provera : TABLET : 10 mg : ORAL Quantity: 1, Unit: tab(s), Route: ORAL, Schedule: once a day, Dispense: 10 &a-1R&a+25V*p+0X*n5554Y*c202B*c15G*c2P*p-0X&a-25V&a+1R Name: GwenCharleen rebollarkalani Godwin : 1980 F36 MedRec: [id number] AcctNum: [id number] Prepared: Rox May 08, 2016 19:44 by Interface pMD [facility]
--- NOTE | 2016-05-08 19:47 | PICIS ---
[facility] EMERGENCY RECORD TRIAGE (16:40 SCHI) PATIENT: NAME: Lourdes Lindsey, AGE: 36, GENDER: female, : Thu1980, TIME OF GREET: ThuMay 08, 2016 16:13, PREFERRED LANGUAGE: Amharic, RACE: WHITE, ETHNICITY: Not or , FALL RISK: NO, ECODE BILLING MAP: [facility] ER, SSN: [id number], Zip Code: [facility], KG WEIGHT: [phone], PHONE: CELL, , , PERSON ID: [id number], PCP: MD Velasquez David. (16:40 SCHI) TRIAGE NOTES: FEELS WEAK, CRAMPING, HAS BEEN HAVING ISSUES WITH HER PERIODS,. (16:40 SCHI) COMPLAINT: MULTIPLE COMPLAINTS. (16:40 SCHI) ADMISSION: URGENCY: 4 Non Urgent, ADMISSION SOURCE: Home, TRANSPORT: Walk-in, BED: WAIT. (16:40 SCHI) ASSESSMENT: Assessment: ALERT AND ORIENTED X 4, SKIN WARM AND DRY RESP EVEN AND UNLABORED,, Symptoms began ONGOING. (16:40 SCHI) PAIN: Patient complains of pain described as, cramping, on a scale 0-10 patient rates pain as 7, Pain is intermittent. (16:40 SCHI) TRIAGE SCREENING: Patient denies suicidal ideation, Patient denies presence of domestic violence. (16:40 SCHI) PROVIDERS: TRIAGE NURSE: Nik Cunningham RN. (16:40 SCHI) VITAL SIGNS: BP 146/77, Pulse 81, Resp 20, Temp 100., (Tympanic), Pain 7, (Intermittent), O2 Sat 98, on Room Air, Time 05/08/2016 16:38. (16:38 SCHI) PREVIOUS VISIT ALLERGIES: aspirin (bulk), morphine, Peanut Butter Flavor, Soy. (16:40 SCHI) KNOWN ALLERGIES aspirin (bulk): - UPSERTS STOMACH morphine: Reaction: Nausea, Severity: Severe, Source: Patient Peanut Butter Flavor: Reaction: Anaphylaxis, Source: Patient Soy: Reaction: Nausea CURRENT MEDICATIONS (16:41 SCHI) Geodon: CAPSULE : Strength - 80 mg : ORAL Patient Dose: 1 tab(s) Oral once a day (at bedtime). traZODone: TABLET : Strength - 100 mg : ORAL Patient Dose: 1 tab(s) Oral once a day (at bedtime). Topamax: TABLET : Strength - 200 mg : ORAL Patient Dose: 1 tab(s) Oral once a day (at bedtime). LORazepam: TABLET : Strength - 0.5 mg : ORAL Patient Dose: As Needed. Lexapro: TABLET : Strength - 20 mg : ORAL Patient Dose: once a day. &a-1R&a+25V*p+0X*u6701P*c202B*c15G*c2P*p-0X&a-25V&a+1R Name: Lourdes Lindsey : 1980 F36 MedRec: [id number] AcctNum: [id number] Prepared: [facility] May 08, 2016 19:44 by Interface Page [address] [facility] EMERGENCY RECORD Cogentin: TABLET : Strength - 2 mg : ORAL Patient Dose: 4 mg once a day (at bedtime). PriLOSEC: CAPSULE,DELAYED RELEASE (ENTERIC COATED) : Strength - 40 mg : ORAL Patient Dose: Oral once a day (at bedtime). metFORMIN: TABLET : Strength - 500 mg : ORAL Patient Dose: 1 tab(s) Oral 2 times a day (before meals). VITAL SIGNS VITAL SIGNS: BP: 146/77, Pulse: 81, Resp: 20, Temp: 100. (Tympanic), Pain: 7 (Intermittent), O2 sat: 98 on Room Air, Time: 05/08/2016 16:38. (16:38 SCHI) BP: 136/76, Pulse: 77, Resp: 18, O2 sat: 96 on Room Air, Time: 05/08/2016 18:45. (18:45 CJEF) BP: 141/68, Pulse: 80, Resp: 18, Temp: 99.5 (Oral), Pain: 7, O2 sat: 95 on Room Air, Time: 05/08/2016 19:12. (19:12 CJEF) NURSING ASSESSMENT: ABDOMEN (16:52 SCHI) CONSTITUTIONAL: Patient complains of WEAKNESS AND HURTS, PT HAS MULTIPLE C/O FEMALE ISSUES WHICH SHE IS CURRENLY SEEING HER DOCTOR FOR BUT DOESN'T HAVE MONEY FOR FULL TREATMENT. PAIN: aching pain, ALL OVER, on a scale 0-10 patient rates pain as 7. NOTES: Patient tolerated procedure well. NURSING PROCEDURE: NEWSPAPER EDITOR (18:45 CJ) PATIENT IDENTIFIER: Patient actively involved in identification process, Patient's identity verified by patient stating name, Patient's identity verified by patient stating date. NEWSPAPER EDITOR: Patient placed on non-invasive blood pressure monitor, with disposable blood pressure cuff applied, Patient placed on continuous pulse oximetry. FOLLOW-UP: After procedure, alarms set and on, After procedure, patient tolerating monitoring. NOTES: Patient tolerated procedure well. SAFETY: Side rails up, Cart/Stretcher in lowest position, Family at bedside, Call light within reach, Hospital ID band on. NURSING PROCEDURE: DISCHARGE NOTE (19:27 [facility]) DISCHARGE: Patient discharged to home, ambulating without assistance, family driving, accompanied by //partner, Summary of Care printed/ provided, Patient requested and was provided an electronic copy of Discharge Instructions, Transition record given to patient, Discharge instructions given to patient, Simple or moderate discharge teaching performed, Prescriptions given and instructions on side effects given, Medication reconciliation form given, Above person(s) verbalized understanding of discharge instructions and follow-up care, Patient treated and evaluated by &a-1R&a+25V*p+0X*g4793N*c202B*c15G*c2P*p-0X&a-25V&a+1R Name: Lourdes Lindsey : 1980 F36 MedRec: [id number] AcctNum: [id number] Prepared: Rox May 08, 2016 19:44 by Interface Page [address] [facility] EMERGENCY RECORD physician. BELONGINGS: Belongings remain with patient. NOTES: Patient tolerated procedure well. SAFETY: Side rails up, Cart/Stretcher in lowest position, Family at bedside, Call light within reach, Hospital ID band on. NURSING PROCEDURE: NURSE NOTES (18:47 [facility]) NURSES NOTES: Patient in no apparent distress, Patient resting quietly, Notes: PT RESTING IN BED QUIETLY WITH FAMILY AT BEDSIDE. NO DISTRESS NOTED. NURSING PROCEDURE: URINE COLLECTION (18:38 [facility]) PATIENT IDENTIFIER: Patient actively involved in identification process, Patient's identity verified by patient stating name, Patient's identity verified by patient stating date, Patient's identity verified by hospital ID chan. URINE COLLECTION FEMALE: Urine collected by mid-stream clean catch, urine yellow in color, Specimen labeled in the presence of the patient and sent to lab. SAFETY: Side rails up, Cart/Stretcher in lowest position, Family at bedside, Hospital ID band on. ORDER DETAILS Order Name: CBC with Differential, Status: Active, Time: 17:05/08/2016, User: MICHAEL, - Ordered for: MD Yuan Lloyd, - Entered by: MD Yuan Lloyd - Rox May 08, 2016 17:07, - Quantity: 1, Order Name: Comprehensive Metabolic Panel, Status: Active, Time: 17:05/08/2016, User: LLDO, - Ordered for: MD Yuan Lloyd, - Entered by: MD Yuan Lloyd - Rox May 08, 2016 17:07, - Quantity: 1, Order Name: CRP (Inflamatory), Status: Active, Time: 17:07 05/08/2016, User: LLDO, - Ordered for: MD Yuan Lloyd, - Entered by: MD Yuan Lloyd - Orx May 08, 2016 17:07, - Quantity: 1, Order Name: Culture, Urine, Status: Active, Time: 17:05/08/2016, User: LL, - Ordered for: MD Yuan Lloyd, - Entered by: MD Yuan Lloyd - Rox May 08, 2016 17:07, - Quantity: 1, Order Name: Test, Serum (BHCG), Status: Active, Time: 17:05/08/2016, User: LLDO, - Ordered for: MD Yuan Lloyd, - Entered by: MD Yuan Lloyd - Rox May 08, 2016 17:07, - Quantity: 1, Order Name: Urinalysis w/ Rflx Microscopic, Status: Active, Time: &a-1R&a+25V*p+0X*b9601O*c202B*c15G*c2P*p-0X&a-25V&a+1R Name: Lourdes Lindsey DOB: 1980 F36 MedRec: [id number] AcctNum: [id number] Prepared: [facility] May 08, 2016 19:44 by Interface Page [address] [facility] EMERGENCY RECORD 17:07 05/08/2016, User: LANA, - Ordered for: MD Yuan Lloyd, - Entered by: MD Yuan Lloyd - [facility] May 08, 2016 17:07, - Quantity: 1. MEDICATION ADMINISTRATION SUMMARY Drug Name: Smithfield, Dose Ordered: 10-325 mg, Route: Oral, Status: Given, Time: 19:12 05/08/2016, Drug Name: Benadryl oral, Dose Ordered: 50 mg, Route: Oral, Status: Given, Time: 19:11 05/08/2016, Drug Name: Levsin/SL, Dose Ordered: 0.5 mg, Route: Sublingual, Status: Given, Time: 19:11 05/08/2016, Drug Name: Phenergan oral, Dose Ordered: 50 mg, Route: Oral, Status: Given, Time: 19:11 05/08/2016, Detailed record available in Medication Service section. MEDICATION SERVICE Benadryl oral: Order: Benadryl oral (diphenhydramine HCl) - Dose: 50 mg : Oral Schedule: Now Ordered by: Wing Yuan MD Entered by: Wing Yuan MD [facility] May 08, 2016 18:58 Documented as given by: Aleena Lira RN [facility] May 08, 2016 19:11 Patient, Medication, Dose, Route and Time verified prior to administration. Amount given: 50MG, Site: Medication administered P.O., Mouth check performed after administration of medication, Patient appears Awake and alert- acceptable, Correct patient, time, route, dose and medication confirmed prior to administration, Patient advised of actions and side-effects prior to administration, Allergies confirmed and medications reviewed prior to administration, Patient tolerated procedure well, Patient in position of comfort, Side rails up, Cart in lowest position, Family at bedside. : Follow Up : Response assessment performed, No signs or symptoms of allergic reaction noted, Advised not to ambulate without assistance, Patient in position of comfort, Side rails up, Cart in lowest position, Family at bedside. (19:21 [facility]) Levsin/SL: Order: Levsin/SL (hyoscyamine sulfate) - Dose: 0.5 mg : Sublingual Schedule: Now Ordered by: Wing Yuan MD Entered by: Wing Yuan MD [facility] May 08, 2016 18:59 Documented as given by: Aleena Lira RN [facility] May 08, 2016 19:11 Patient, Medication, Dose, Route and Time verified prior to administration. Amount given: 0.5 MG, Site: Medication administered S.L., Mouth check performed after administration of medication, Patient appears Awake and alert- acceptable, Correct patient, time, route, dose and medication confirmed prior to administration, Patient advised of &a-1R&a+25V*p+0X*o4705L*c202B*c15G*c2P*p-0X&a-25V&a+1R Name: Lourdes Lindsey : 1980 F36 MedRec: [id number] AcctNum: [id number] Prepared: Rox May 08, 2016 19:44 by Interface Page [address] [facility] EMERGENCY RECORD actions and side-effects prior to administration, Allergies confirmed and medications reviewed prior to administration, Patient tolerated procedure well, Patient in position of comfort, Side rails up, Cart in lowest position, Family at bedside. : Follow Up : Response assessment performed, No signs or symptoms of allergic reaction noted, Advised not to ambulate without assistance, Patient in position of comfort, Side rails up, Cart in lowest position, Family at bedside. (19:21 [facility]) Smithfield: Order: [place] (hydrocodone bitartrate/acetaminophen) - Dose: 10-325 mg : Oral POTENTIAL ALLERGY REACTION: 'morphine [morphine/morphine sulfate]' - Reviewed with patient, pt says can safely take this medicine Schedule: Now Ordered by: Wing Yuan MD Entered by: Wing Yuan MD [facility] May 08, 2016 18:57 Documented as given by: Aleena Lira RN [facility] May 08, 2016 19:12 Patient, Medication, Dose, Route and Time verified prior to administration. Amount given: 1 TAB, Site: Medication administered P.O., Mouth check performed after administration of medication, Patient appears Awake and alert- acceptable, Correct patient, time, route, dose and medication confirmed prior to administration, Patient advised of actions and side-effects prior to administration, Allergies confirmed and medications reviewed prior to administration, Patient tolerated procedure well, Patient in position of comfort, Side rails up, Cart in lowest position, Family at bedside. : Follow Up : Response assessment performed, No signs or symptoms of allergic reaction noted, Advised not to ambulate without assistance, Patient in position of comfort, Side rails up, Cart in lowest position, Family at bedside. (19:21 [facility]) Phenergan oral: Order: Phenergan oral (promethazine HCl) - Dose: 50 mg : Oral Schedule: Now Ordered by: Wing Yuan MD Entered by: Wing Yuan MD [facility] May 08, 2016 18:59 Documented as given by: Aleena Lira RN [facility] May 08, 2016 19:11 Patient, Medication, Dose, Route and Time verified prior to administration. Amount given: 50MG, Site: Medication administered P.O., Mouth check performed after administration of medication, Patient appears Awake and alert- acceptable, Correct patient, time, route, dose and medication confirmed prior to administration, Patient advised of actions and side-effects prior to administration, Allergies confirmed and medications reviewed prior to administration, Patient tolerated procedure well, Patient in position of comfort, Side rails up, Cart in lowest position, Family at bedside. : Follow Up : Response assessment performed, No signs or symptoms of allergic reaction noted, Advised not to ambulate without assistance, Patient in position of comfort, Side rails up, Cart in lowest position, Family at bedside. (19:21 [facility]) &a-1R&a+25V*p+0X*t3605W*c202B*c15G*c2P*p-0X&a-25V&a+1R Name: Lourdes Lindsey : 1980 F36 MedRec: [id number] AcctNum: [id number] Prepared: [facility] May 08, 2016 19:44 by Interface Page [address] [facility] EMERGENCY RECORD HPI ABDOMINAL PAIN (19:01 LLDO) CHIEF COMPLAINTS: Patient presents for evaluation of abdominal pain, Patient presents for evaluation of last week pt was given a depo-provera shot to stop periods to help her recover from her anemia in prep for her up-coming hysterectomy. the bleeding has stopped but the pelvic cramps are now much worse. pt unable to sleep or find any comfort. HISTORIAN: History provided by patient, History provided by patient's partner. LOCATION FEMALE: Symptoms are generalized. QUALITY: Pain is dull in nature, described as aching, described as cramping. SEVERITY: Maximum severity of symptoms severe, Currently symptoms are moderate. TIME COURSE: Patient unable to describe onset of symptoms, Symptoms are intermittent, Symptoms are worsening. ASSOCIATED WITH FEMALE: No associated recent antibiotic use, No associated bright red blood per rectum, No associated chills, No associated constipation, No associated diarrhea, Associated with fever, Associated with loss of appetite, Associated with nausea, No associated night sweats, No associated trauma, No associated urinary tract infection signs or symptoms, No associated vomiting, low back pain. MODIFYING FACTORS FEMALE: Patient does not have sexually transmitted disease, see hpi. RELIEVED BY: Patient's condition relieved by nothing. EXACERBATED BY: Patient's condition exacerbated by movement, Patient's condition exacerbated by walking, Patient's condition exacerbated by PALPATION. RISK FACTORS FEMALE: No ectopic risk factors present, Abdominal aortic aneurysm risk factors, not applicable for this patient, no connective tissue disorders, no Tamara Danlos syndrome, no first degree relative, no Marfan's syndrome, patient not over 40 years of age, no history of abdominal aortic aneurysm, Coronary artery disease risk factors, include diabetes. ROS CONSTITUTIONAL: Historian reports fatigue, reports weakness. (19:11 LLDO) EYES: Negative eye review of systems, Historian denies eye pain, denies eye redness, denies eye discharge. (19:15 LLDO) ENT: Negative ears, nose, throat review of systems, Historian denies epistaxis, denies rhinorrhea, denies sinus pain, denies sore throat. (19:15 LLDO) CARDIOVASCULAR: Negative cardiovascular review of systems, Historian denies chest pain, no radiation, Historian denies diaphoresis, denies syncope. (19:15 LLDO) RESPIRATORY: Negative respiratory review of systems, Historian denies cough, denies shortness of breath, denies sputum. (19:15 LLDO) GI: Negative gastrointestinal review of systems, Historian denies &a-1R&a+25V*p+0X*o1656O*c202B*c15G*c2P*p-0X&a-25V&a+1R Name: Lourdes Lindsey : 1980 F36 MedRec: [id number] AcctNum: [id number] Prepared: Rox May 08, 2016 19:44 by Interface Page [address] [facility] EMERGENCY RECORD abdominal pain, denies constipation, denies diarrhea, denies nausea, denies vomiting. (19:15 LLDO) GENITOURINARY FEMALE: Negative genitourinary review of systems, Historian denies dysuria, denies frequency, denies urgency. (19:15 LLDO) MUSCULOSKELETAL: Negative musculoskeletal review of systems, Historian denies arthralgias, denies back pain, denies injury, denies myalgias, denies neck pain. (19:15 LLDO) SKIN: Negative skin review of systems, Historian denies cellulitis, denies rash, denies skin changes, denies skin lesions. (19:15 LLDO) NEUROLOGIC: Negative neurologic review of systems, Historian denies confusion, denies dizziness, denies focal weakness, denies mental status changes. (19:15 LLDO) HEMO/LYMPHATIC: Normal hematologic/lymphatic system review, Historian denies abnormal blood clotting, denies gum bleeding, denies petechiae. (19:15 LLDO) ALLERGIC/IMMUNOLOGIC: Normal allergy/immunologic system review, Historian denies eczema, denies environmental allergies, denies food allergies. (19:15 LLDO) PSYCHIATRIC: Negative psychiatric review of systems, Historian denies alcohol abuse, denies anxiety, denies depression, denies drug abuse, denies hallucinations. (19:15 LLDO) NOTES: All systems reviewed, negative except as described above. (19:11 LLDO) PAST MEDICAL HISTORY MEDICAL HISTORY: Flu vaccine not up to date, Pneumococcal vaccine up to date, Date of immunization: 2007, Past medical history includes history of diabetes, Type I, ON METFORMIN, Flu vaccine up to date, Tetanus immunization up to date, Past medical history includes gastrointestinal disease, irritable bowel syndrome, Past medical history includes neurological disease, migraine headaches, Notes: GERD, Past medical history includes history of obesity, Past medical history includes pulmonary disease, SEASONAL ALLERGIES. VERIFIED 02/29/16. PLUS FATTY LIVER DISEASE. (16:40 SCHI) FEMALE SURGICAL HISTORY: Surgical history of cholecystectomy, HAND (right), THROAT (nodule removed) AND FOOT (right)SURGERIES. Surgical history of section, Date of surgery 2004. CARPAL TUNNEL right. VERIFIED 02/29/16. (16:40 SCHI) PSYCHIATRIC HISTORY: Psychiatric history includes, depression, Psychiatric history includes, schizophrenia, Notes: BI-POLAR. Psychiatric history includes, depression,. VERIFIED 02/29/16. (16:40 SCHI) SOCIAL HISTORY: Patient denies alcohol use, Patient denies drug use, Lives at home, with family, Tobacco history notes: currently uses vape cigarettes, Lives at home. Patient denies alcohol use, Patient denies drug use,, Patient is a former tobacco user, Tobacco history notes: currently uses vape cigarettes, Lives at home. &a-1R&a+25V*p+0X*d1914R*c202B*c15G*c2P*p-0X&a-25V&a+1R Name: Lourdes Lindsey : 1980 F36 MedRec: [id number] AcctNum: [id number] Prepared: Rox May 08, 2016 19:44 by Interface Page [address] [facility] EMERGENCY RECORD VERIFIED 02/29/16. (16:40 SCHI) NOTES: Nursing records reviewed, Agree with nursing records, Medication list reviewed. (19:14 LLDO) PHYSICAL EXAM CONSTITUTIONAL: Vital Signs Reviewed, Patient afebrile, Pulse normal, Blood pressure normal, Respiratory rate normal, Patient appears non toxic, Patient appears, in moderate pain distress, SEVERE WITH PALPATION OR MOVEMENT, Patient alert and oriented to person, place and time, Nursing notes reviewed. (19:12 LLDO) HEAD: Head exam normal, Head exam included findings of head atraumatic, normocephalic. (19:15 LLDO) EYES: Eye exam normal, Eye exam included findings of eyelids normal to inspection, Pupils equally round and reactive to light, Extraocular muscles intact. (19:15 LLDO) ENT: ENT exam normal, Ear exam normal, Nose exam normal. (19:15 LLDO) NECK: Neck exam normal, Neck exam included findings of normal range of motion, Trachea midline, no meningeal signs, no tenderness. (19:15 LLDO) RESPIRATORY CHEST: Respiratory and chest exam normal, Respiratory exam included findings of, Chest exam included findings of chest movement symmetrical, Chest expansion equal. (19:15 LLDO) CARDIOVASCULAR: Cardiovascular assessment normal, Cardiovascular exam included findings of heart rate regular rate and rhythm, Heart sounds normal. (19:15 LLDO) ABDOMEN FEMALE: Abdominal exam included findings of abdomen tender, to the left lower quadrant, moderate intensity, Bowel sounds normal. (19:12 LLDO) BACK: Back exam included findings of normal inspection, range of motion normal, no tenderness, no costovertebral angle tenderness, no Scoliosis, no pain with straight leg raise. (19:12 LLDO) UPPER EXTREMITY: Upper extremity exam normal, Upper extremity exam included findings of inspection normal, Range of motion normal. (19:15 LLDO) LOWER EXTREMITY: Lower extremity exam normal, Lower extremity exam included findings of inspection normal, Range of motion normal. (19:15 LLDO) NEURO: Neuro exam normal, Neuro exam findings include patient oriented to person, place and time, Speech normal, Melly coma scale 15. (19:15 LLDO) SKIN: Skin exam normal, Skin exam included findings of skin warm, dry, and normal in color, no rash. (19:15 LLDO) PSYCHIATRIC: Psychiatric exam normal, Psychiatric exam included findings of patient oriented to person place and time, Normal affect. (19:15 LLDO) EVENTS &a-1R&a+25V*p+0X*l4525U*c202B*c15G*c2P*p-0X&a-25V&a+1R Name: Lourdes Lindsey : 1980 F36 MedRec: [id number] AcctNum: [id number] Prepared: ThuMay 08, 2016 19:44 by Interface Page [address] [facility] EMERGENCY RECORD TRANSFER: Triage to Emergency Waiting. (ThuMay 08, 2016 16:40 SCHI) Emergency Waiting to Main ED -05. (18:37 SCHI) Removed from Emergency Main ED -05. (19:31 MCRS) PROBLEM LIST No recorded problems DIAGNOSIS (19:18 LLDO) FINAL: PRIMARY: Pelvic Pain, ADDITIONAL: ANEMIA UNSPECIFIED. DISPOSITION PATIENT: Disposition Type: Discharge, Disposition: *Discharge Home. (19:18 LLDO) Patient left the department. (19:31 MCRS) INSTRUCTION (19:22 LLDO) DISCHARGE: PELVIC PAIN, UNKNOWN CAUSE. FOLLOWUP: MD Ron, [facility], [address] [place] [address], [place] [address], [place], , Follow up with Primary Care Physician as soon as possible. SPECIAL: Follow-up with your FINANCIAL REPORTING CONSULTANT doctor. PRESCRIPTION (19:20 LLDO) Provera: TABLET : 10 mg : ORAL : Quantity: 1 Unit: tab(s) Route: ORAL Schedule: once a day Dispense: 10 May substitute. Refills: No Refills . NOTES: No Refills. [place]field: TABLET : 10 mg-325 mg : ORAL : Quantity: 1 Unit: tab(s) Route: ORAL Schedule: every 4 hours prn Dispense: 30 Unit: tab(s) May substitute. Refills: No Refills POTENTIAL ALLERGY REACTION: 'morphine [morphine/morphine sulfate]' Override Rationale: Reviewed with patient, pt says can safely take this medicine. NOTES: ^s=No Refills No Refills. IMAGING NORCO PRESCRIPTION: Image captured from scanner. (19:28 MCRS) *DISCHARGE INSTRUCTIONS RECEIPT: Image captured from scanner. (19:32 MCRS) Page 2 added. Image captured from scanner. (19:32 MCRS) *SUPPLY CHARGE SHEET: Image captured from scanner. (19:32 MCRS) ADMIN (19:28 [facility]) DIGITAL SIGNATURE: MD Lissy Wing. RESULTS (19:16 [facility]) &a-1R&a+25V*p+0X*e9421E*c202B*c15G*c2P*p-0X&a-25V&a+1R Name: Lourdes Lindsey : 1980 F36 MedRec: [id number] AcctNum: [id number] Prepared: ThuMay 08, 2016 19:44 by Interface Page [address] [facility] EMERGENCY RECORD LABORATORY: Urinalysis w/ Rflx Microscopic Collection DT: ThuMay 08, 2016 18:46, Color Yellow , Range (Yellow), Clarity Clear , Range (Clear), Specific Osborn, Urine 1.020 , Range (1.005-1.030), pH, Urine 5.5 , Range (5.0-9.0), Leukocyte Negative , Range (Negative), Nitrite Negative , Range (Negative), Protein, Urine (Dipstick) Negative mg/dL, Range (Neg-Trace), Glucose, Urine (Dipstick) Negative mg/dL, Range (Negative), Ketone, Urine Negative mg/dL, Range (Negative), Urobilinogen 0.2 mg/dL, Range (0.2-1.0), Bilirubin Negative , Range (Negative), Blood, Urine Negative , Range (Negative). CRP (Inflammatory) Collection DT: ThuMay 08, 2016 17:29, *CRP (Inflammatory) 2.86 - H mg/dL, Range (= or < 0.5). Comprehensive Metabolic Panel Collection DT: ThuMay 08, 2016 17:29, Sodium 138 mmol/L, Range (136-145), Potassium 3.7 mmol/L, Range (3.5-5.1), Chloride 104 mmol/L, Range (98-107), Carbon Dioxide 22 mmol/L, Range (22-29), Anion Gap 16 mmol/L, Range (10-20), BUN (Urea Nitrogen) 10 mg/dL, Range (7.0-18.7), Creatinine 0.77 mg/dL, Range (0.6-1.1), Estimated GFR-MDRD 84 , Reference Range for Estimated GFR: Greater than 90, mL/min/1.73 m2 NOTE: The MDRD equation has not been validated for use, with the elderly (over 70 years of age), women, patients with, serious comorbid condition or persons with extremes of body size, muscle, mass, or nutritional status. , Glucose 102 mg/dL, Range (70-105), Calcium 9.7 mg/dL, Range (7.8-10.44), Bilirubin, Total 0.3 mg/dL, Range (0.2-1.2), Protein, Total 7.2 g/dL, Range (6.0-8.3), NOTE: Plasma values are generally 0.3 to 0.5 g/dL higher than serum values, due to the presence of fibrinogen. , Albumin 4.3 g/dL, Range (3.5-5.0), Globulin 2.9 g/dL, Range (2.4-3.5), Alb/Glob Ratio 1.5 g/dL, Range (1.2-2.2), Alkaline Phosphatase 117 U/L, Range (40-150), *AST (SGOT) 128 - H U/L, Range (5-34), *ALT (SGPT) 60 - H U/L, Range (0-55). Test, Serum (BHCG) Collection DT: ThuMay 08, 2016 17:29, BHCG - Serum NEGATIVE , Range (NEGATIVE), Method of sensitivity- Indeterminant: results should be repeated, after 48 hours. Positive: results may be detected as early as 4-5 days before a first missed menses. &a-1R&a+25V*p+0X*[id number]*c202B*c15G*c2P*p-0X&a-25V&a+1R Name: Lourdes Lindsey : 1980 F36 MedRec: [id number] AcctNum: [id number] Prepared: ThuMay 08, 2016 19:44 by Interface Page [address] [facility] EMERGENCY RECORD Elimination of BHCG-, Elimination following first trimester D&C: 29-44 Days , Elimination following term : 8-24 Days . CBC with Differential Collection DT: ThuMay 08, 2016 17:29, White Blood Cell (WBC) Count 8.3 thou/uL, Range (4.8-10.8), Red Blood Cell (RBC) Count 4.45 mill/uL, Range (4.20-5.40), *Hemoglobin 10.5 - L g/dL, Range (12.0-16.0), *Hematocrit 33.8 - L %, Range (36.0-47.0), *Mean Corpuscular Volume 75.8 - L fL, Range (81.0-99.0), *Mean Corpuscular Hemoglobin 23.5 - L pg, Range (27.0-31.0), *Mean Corpuscular HGB CONC 31.0 - L g/dL, Range (32.0-36.0), *RBC Distribution Width 17.9 - H %, Range (11.5-14.5), Platelet Count 252 thou/uL, Range (130-400), Mean Platelet Volume 8.4 fL, Range (7.4-10.4), %Neutrophils 64.2 %, Range (42.0-75.0), %Lymphocytes 24.8 %, Range (21.0-51.0), %Monocytes 5.0 %, Range (0.0-10.0), %Eosinophils 5.5 %, Range (0.0-10.0), %Basophils 0.6 %, Range (0.0-1.0), #Neutrophils 5.4 thou/uL, Range (1.40-6.50), #Lymphocytes 2.1 thou/uL, Range (1.20-3.40), #Monocytes 0.4 thou/uL, Range (0.11-0.59), #Eosinphils 0.5 thou/uL, Range (0.0-0.7), #Basophils 0.0 thou/uL, Range (0.0-0.2), Anisocytosis SLIGHT = 6-15 cells (100X), Range (0-5/hpf), PLT Morphology Comment Appears Adequate . Cheng: SAVI=REGAN Lira, Aleena RODRIGUEZ=MD Lissy, Wing CHENGS=REGAN Montano, Juan CASTILLO=REGAN Cunningham, Slinda &a-1R&a+25V*p+0X*[id number]*c202B*c15G*c2P*p-0X&a-25V&a+1R Name: Lourdes Lindsey : 1980 F36 MedRec: [id number] AcctNum: [id number] Prepared: ThuMay 08, 2016 19:44 by Interface Page [address] [facility] MEDICATION RECONCILIATION You were seen in the Emergency Department on: ThuMay 08, 2016 KNOWN ALLERGIES aspirin (bulk): - UPSERTS STOMACH morphine: Reaction: Nausea, Severity: Severe, Source: Patient Peanut Butter Flavor: Reaction: Anaphylaxis, Source: Patient Soy: Reaction: Nausea MEDICATIONS GIVEN WHILE IN THE EMERGENCY DEPARTMENT [place] (hydrocodone bitartrate/acetaminophen) - Dose: 10-325 milligram(s) : Oral Benadryl oral (diphenhydramine HCl) - Dose: 50 milligram(s) : Oral Levsin/SL (hyoscyamine sulfate) - Dose: 0.5 milligram(s) : Sublingual Phenergan oral (promethazine HCl) - Dose: 50 milligram(s) : Oral HOME MEDICATIONS CONTINUE PRESCRIBED Cogentin : TABLET : Strength - 2 mg : ORAL Continue as prescribed Patient had been takin mg once a day (at bedtime). Geodon : CAPSULE : Strength - 80 mg : ORAL Continue as prescribed Patient had been takin tab(s) Oral once a day (at bedtime). Lexapro : TABLET : Strength - 20 mg : ORAL Continue as prescribed Patient had been taking: once a day. LORazepam : TABLET : Strength - 0.5 mg : ORAL Continue as prescribed Patient had been taking: As Needed. metFORMIN : TABLET : Strength - 500 mg : ORAL Continue as prescribed Patient had been takin tab(s) Oral 2 times a day (before meals). PriLOSEC : CAPSULE,DELAYED RELEASE (ENTERIC COATED) : Strength - 40 mg : ORAL Continue as prescribed Patient had been taking: Oral once a day (at bedtime). &a-1R&a+25V*p+0X*[id number]*c202B*c15G*c2P*p-0X&a-25V&a+1R Name: Lourdes Lindsey Tato : 1980 F36 MedRec: [id number] AcctNum: [id number] Prepared: Rox May 08, 2016 19:[address] [facility] MEDICATION RECONCILIATION Topamax : TABLET : Strength - 200 mg : ORAL Continue as prescribed Patient had been takin tab(s) Oral once a day (at bedtime). traZODone : TABLET : Strength - 100 mg : ORAL Continue as prescribed Patient had been takin tab(s) Oral once a day (at bedtime). Notes from the emergency department Reviewed with family Reviewed with patient PRESCRIPTIONS (2) Printed (2) Provera : TABLET : 10 mg : ORAL Quantity: 1, Unit: tab(s), Route: ORAL, Schedule: once a day, Dispense: 10 &a-1R&a+25V*p+0X*[id number]*c202B*c15G*c2P*p-0X&a-25V&a+1R Name: GwenCharleen reblolarkalani Godwin : 1980 F36 MedRec: [id number] AcctNum: [id number] Prepared: Rox May 08, 2016 19:44 by Interface pMD [facility]
== END 2016-05-08 19:32 | disposition home or self-care (01) ==
LOC: MADERS 16:12
DX: R10.2 Pelvic and perineal pain (principal); D64.9 Anemia, unspecified; E10.9 Type 1 diabetes mellitus without complications; G43.909 Migraine, unspecified, not intractable, without status migrainosus; F32.9 Major depressive disorder, single episode, unspecified
CPT/HCPCS: 80053; 81003; 84703; 85025; 86140; 87086; 99284

== ENCOUNTER 2016-07-14 17:31 | Emergency (ER) | payer MEDICARE ==
[~2016-07-14 17:31] MED LIST: Sodium Chloride 0.9% 100 ML BAG ONE
[2016-07-14] MEDS ORDERED: Magnesium Sulfate 2 GM/NS 0.9% 50 ML BAG ONE (17:58)
[2016-07-14] MEDS ORDERED: Ketorolac Tromethamine 30 MG/ML VIAL ONE (18:07)
[2016-07-14] MEDS ORDERED: diphenhydrAMINE HCl 50 MG/ML 1 ML VIAL ONE (18:07)
[2016-07-14] MEDS ORDERED: Metoclopramide HCl 10 MG/2 ML VIAL ONE (18:11)
== END 2016-07-14 19:10 | disposition home or self-care (01) ==
LOC: MADERS 17:31
DX: G43.909 Migraine, unspecified, not intractable, without status migrainosus (principal); J06.9 Acute upper respiratory infection, unspecified; E11.9 Type 2 diabetes mellitus without complications; K21.9 Gastro-esophageal reflux disease without esophagitis; Z79.899 Other long term (current) drug therapy; Z79.84 Long term (current) use of oral hypoglycemic drugs
CPT/HCPCS: 96365; 96367; 96375; J1200; J1885; J2765; J3475; J7050

== ENCOUNTER 2016-07-21 18:15 | Emergency (ER) | payer MEDICARE ==
[~2016-07-21 18:15] MED LIST changes: +Sodium Chloride 0.9% 1,000 ML BAG ONE; -Sodium Chloride 0.9% 100 ML BAG ONE
[2016-07-21 18:50] LABS: Bilirubin Negative (Negative); Blood, Urine Negative (Negative); Clarity Clear (Clear); Glucose, Urine (Dipstick) Negative (Negative); Leukocyte Negative (Negative); Nitrite Negative (Negative); Protein, Urine (Dipstick) Negative (Neg-Trace); Urobilinogen 0.2 mg/dL (0.2-1.0); pH, Urine 7.5 (5.0-9.0)
[2016-07-21 18:54] LABS: Bacteria/HPF Rare-Few HPF (None Seen); Other Microscopic Description C&S SET UP; RBC/HPF 0-3 HPF (0-3); Squamous Epithelial 0-3 HPF (0-3); WBC/HPF 0-3 HPF (0-3)
[2016-07-21] MEDS ORDERED: Ondansetron HCl/PF 4 MG/2 ML Vial ONE (18:56)
[2016-07-21] MEDS ORDERED: Diphenoxylate HCl/Atropine Tablet ONE (19:01)
[2016-07-21] MEDS ORDERED: HYDROcodone/Acetaminophen 10/325 mg Tablet ONE (19:01)
[2016-07-21] MEDS ORDERED: Ciprofloxacin 500 MG TAB ONE (20:22)
[2016-07-21] MEDS ORDERED: Sulfameth/Trimethoprim DS 800-160mg TAB ONE (20:22)
== END 2016-07-21 20:25 | disposition home or self-care (01) ==
LOC: MADERS 18:15
DX: K52.9 Noninfective gastroenteritis and colitis, unspecified (principal); E10.9 Type 1 diabetes mellitus without complications; K21.9 Gastro-esophageal reflux disease without esophagitis; K58.9 Irritable bowel syndrome, unspecified; F32.9 Major depressive disorder, single episode, unspecified; Z90.49 Acquired absence of other specified parts of digestive tract
CPT/HCPCS: 81003; 81015; 87086; 96361; 96374; J2405; J7050

== ENCOUNTER 2016-12-03 21:12 | Emergency (ER) | payer MEDICARE ==
[2016-12-03] MEDS ORDERED: Acetaminophen 500 MG TAB ONE (21:43)
[2016-12-03] MEDS ORDERED: Ibuprofen 800 MG TAB ONE (21:43)
--- NOTE | 2016-12-03 22:12 | RAD ---
THREE VIEWS OF THE RIGHT HAND 12/03/16 INDICATION: Right hand injury. COMPARISON: None. FINDINGS/IMPRESSION: No acute fracture or subluxation is evident. No radiopaque foreign body is noted. POS: [facility]
--- NOTE | 2016-12-03 22:13 | RAD ---
TWO VIEWS OF THE RIGHT FOREARM 12/03/16 INDICATION: Fall with arm pain. COMPARISON: None. IMPRESSION: No acute fracture or subluxation is evident. Radiocapitellar alignment is within normal limits. POS: [facility]
== END 2016-12-03 22:03 | disposition home or self-care (01) ==
LOC: MADERS 21:12
DX: S60.211A Contusion of right wrist, initial encounter (principal); Z79.84 Long term (current) use of oral hypoglycemic drugs; Z79.899 Other long term (current) drug therapy; Z79.891 Long term (current) use of opiate analgesic; W22.8XXA Striking against or struck by other objects, initial encounter

== ENCOUNTER 2017-02-08 09:07 | Emergency (ER) | payer MEDICARE | END 2017-02-08 10:00 | disposition home or self-care (01) | LOC: MADERS 09:07 | DX: E11.40 Type 2 diabetes mellitus with diabetic neuropathy, unspecified (principal); Z76.0 Encounter for issue of repeat prescription; I10 Essential (primary) hypertension; F31.9 Bipolar disorder, unspecified; F20.9 Schizophrenia, unspecified; F17.290 Nicotine dependence, other tobacco product, uncomplicated; F17.210 Nicotine dependence, cigarettes, uncomplicated | CPT/HCPCS: 99283 ==